=== PATIENT | female | born 1975 | race Caucasian/White ===

== ENCOUNTER 2021-09-18 17:31 | Emergency (ER) | payer OTHER ==
[~2021-09-18] VITALS: Ht 160 cm; Wt 99.8 kg
[2021-09-18] MEDS ORDERED: ALLEGRA ALLERG180 MG PO (17:44)
--- NOTE | 2021-09-20 11:26 | EKG ---
[facility] [address] [facility] [place] [address] Signed Normal sinus rhythm with sinus arrhythmia Cannot rule out Anterior infarct , age undetermined Abnormal ECG No previous ECGs available Confirmed by SAJI ROGERS MD ([id number]) on 09/20/2021 11:26:14 AM Electronically Signed By: SAJI ROGERS MD 09/20/21 1126 PATIENT NAME: CHRISTA JARRELL Electrocardiogram DATE OF : 73 PHYSICIAN: SAJI ROGERS MD REPORT #: [id number] REPORT IS CONFIDENTIAL AND NOT TO BE RELEASED WITHOUT AUTHORIZATION
== END 2021-09-19 00:53 | disposition home or self-care (01) ==
LOC: ED 17:31
DX: U07.1 COVID-19 (principal); R55 Syncope and collapse; E87.6 Hypokalemia; J45.909 Unspecified asthma, uncomplicated; Z88.6 Allergy status to analgesic agent; Z79.899 Other long term (current) drug therapy; Z23 Encounter for immunization
CPT/HCPCS: 71045; 80053; 81001; 83735; 84484; 84703; 85025; 93005; 93010; 96374; 96375; 99284-25; C9803; J2405; J3480; J7121; M0247; U0003

== ENCOUNTER 2022-06-18 06:05 | Day surgery (SDC) | payer OTHER ==
[~2022-06-18] VITALS: Ht 160 cm; Wt 102.3 kg
--- NOTE | ~2022-06-18 | OR ---
[facility] [address] [facility] [place], [place] [address] Draft DATE OF OPERATION: 06/18/2022 SURGEON: Pricilla Centeno DO PROCEDURE: Excision of left vaginal cyst. PREOPERATIVE DIAGNOSIS: Laura duct cyst. POSTOPERATIVE DIAGNOSIS: Laura duct cyst, apical prolapse grade 2 rectocele. FASHION MODEL: Anne-Marie Carpio. BLOOD LOSS: 10 mL. ANESTHESIA: Monitored anesthesia care. COMPLICATIONS: None. FINDING: Significant apical prolapse with grade 2 rectocele, even after reduction of apical prolapse 3 cm simple vaginal cyst directly adjacent to cervix on the left side. INDICATIONS: The patient is a 46-year-old female with history of vaginal cyst. She reports it has been increasing in size and has become bothersome to the point that now with menses she is feeling a sense of vaginal pressure, strongly desires definitive surgical treatment. Risks, benefits, and alternatives were discussed including concern for bleeding, insufficient removal of the complete cyst wall, damage to surrounding structures. The patient's questions were answered to the best of my ability and to her apparent satisfaction. She elected to proceed. PROCEDURE IN DETAIL: The patient was taken back to the operating room where she was placed in dorsal PATIENT NAME: CHRISTA JARRELL OPERATIVE REPORT DATE OF : 73 REPORT #: [id number] PHYSICIAN: PRICILLA CENTENO DO PCP: RUTH LYONS MD REPORT IS CONFIDENTIAL AND NOT TO BE RELEASED WITHOUT AUTHORIZATION [facility] [address] [facility] [place], [place] [address] Draft lithotomy position under monitored anesthesia care. She was prepped and draped in normal sterile fashion. Bladder was drained. Weighted speculum was placed in the vagina, which revealed significant prolapse, not previously visualized on exam with the patient awake, lateral wall of the cyst was grasped with Allis clamps. Local anesthetic 1% lidocaine with epinephrine injected 1 mL. Vaginal epithelium was incised with Metzenbaum scissors and this cyst bluntly and sharply dissected after 75% of the cyst had been undermined. The cyst incidentally ruptured spilling clear contents which were suctioned. Cyst wall was grasped with Allis clamps and dissection of the wall was continued, fraying the cyst wall, which was not submitted to pathology. Mild bleeding was noted and easily cauterized with Bovie cautery. Archie powder was applied. Deep suture of 4-0 Vicryl was placed reapproximating the tissue and vagina was closed with 4-0 Vicryl in a running locked fashion with excellent hemostasis resulting. Vagina was reinspected. Excellent hemostasis was again noted and she was taken to recovery in stable and satisfactory condition. Sponge and instrument counts were all correct. DO CONNIE Claire/JEREMY /[id number] Copies: ~ PATIENT NAME: CHRISTA JARRELL OPERATIVE REPORT DATE OF : 73 REPORT #: [id number] PHYSICIAN: PRICILLA CENTENO DO PCP: RUTH LYONS MD REPORT IS CONFIDENTIAL AND NOT TO BE RELEASED WITHOUT AUTHORIZATION
[~2022-06-18 06:05] MED LIST: ALLEGRA ALLERG180 MG PO
[2022-06-18] MEDS ORDERED: FISH OIL DR 1,1 EAC1 PO (06:23)
[2022-06-18] MEDS ORDERED: BIOTIN10000 MC1 PO (06:24)
[2022-06-18] MEDS ORDERED: WOMEN MULTIVIT1 EAC1 PO (06:25)
[2022-06-18] MEDS ORDERED: ELDERBERRY IMM1 EACH PO (06:25)
[2022-06-18] MEDS ORDERED: VITAMIN D325 MC2 PO (06:25)
[2022-06-18] MEDS ORDERED: CALCIUM500 MG PO (06:25)
[2022-06-18] MEDS ORDERED: VITAMIN C 500500 M1 PO (06:26)
--- NOTE | 2022-06-18 07:56 | NUR ---
VISTED WITH PT PRIOR TO PROCEDURE. WAS WITH PT. PT EXPRESSED SOME NERVOUOSNESS ABOUT PROCEDURE. PT WAS TALKATIVE AND VISIT WAS LONG. PRAYED WITH PT AND .
--- NOTE | 2022-06-18 11:25 | NUR ---
06/18/22 1125 Ambreen Merlos 1119-PATIENT ARRIVED TO PACU ON 6L MASK NONAROUSABLE RR EVEN. SR. IVF INFUSING. NO DRAINAGE TO [facility]. 1124-PATIENT OPENING EYES REMAINS VERY DROWSY. 6L MASK RRE PATY 100% PER DR. PETTY LET PATIENT KNOW IF HAVING ANY STOOL OR VOIDING ISSUES NEEDS TO CALL .
--- NOTE | 2022-06-18 12:05 | NUR ---
LE 1145 PATIENT BACK TO ROOM 12 FROM PACU. REPORT RECIEVED FROM [facility]. PATIENT IS DROWSY BUT DENIES ANY PAIN OR BEING NAUSEATED. BREATHING EQUAL AND UNLABORED. OXYGEN SATURATIONS ABOVE 95% ON ROOM AIR. PATIENT SURGICAL SITE IS CLEAN, DRY AND INTACT. IVF INFUSING. SCD'D ON. CALL LIGHT WITHIN REACH NO FUTHER NEEDS. NO QUESTIONS AT THIS TIME.
--- NOTE | 2022-06-18 13:01 | NUR ---
LE 1210 PATIENT UP TO USE RESTROOM. PATIENT GETTING DRESSED. CALLED. LE 1220 PATIENT READY TO DISCHARGE. PATIENT DISCHARGE INSTRUCTIONS GIVEN AND UNDERSTOOD. NO QUESTIONS AT THIS TIME. IV D/C'D WNL. PATIENT WAS WHEELED OUT OF FACILITY TO PRIVATE AUTO WITH .
--- NOTE | 2022-06-19 14:11 | PATH ---
[facility] [address] [place], [place] [address] Signed SPECIMEN(S): A VAGINAL CYST WALL SPECIMEN SOURCE: A. VAGINAL CYST WALL CLINICAL HISTORY: Laura's duct cyst, left (vaginal cyst wall). FINAL PATHOLOGIC DIAGNOSIS: Vaginal cyst wall: - [place] soft tissue with cystic features, negative for atypical features or evidence of malignancy. JVR:sm:C2NR MICROSCOPIC EXAMINATION: Histologic sections of all submitted blocks are examined by light microscopy. These findings, together with the gross examination, support the pathologic diagnosis. GROSS DESCRIPTION: The specimen, labeled "PM, A," and designated on the requisition "cyst, vaginal wall," is received in formalin and consists of a fragmented portion of pink-cunningham, membranous tissue (2.0 x 1.4 x 0.6 cm). The specimen is serially sectioned and submitted entirely in cassette (A1). AC (under the direct supervision of a pathologist) The Gross Description was prepared using a voice recognition system. The report was reviewed for accuracy; however, sound-alike word errors, addition and/or deletions may occur. If there is any question about this report, please contact Client Services. PERFORMING LABORATORY: The technical component was performed by [facility], [address] [place] [id number] (CLIA# [id number]). Professional interpretation was performed by [facility], [address] [place] [id number] (CLIA#: [id number]). Diagnostician: Ryan Alberts MD Pathologist Electronically Signed 06/19/2022 PATIENT NAME: CHRISTA JARRELL PATHOLOGY DATE OF : 73 REPORT #: [id number] PHYSICIAN: [facility] PCP: RUTH LYONS MD REPORT IS CONFIDENTIAL AND NOT TO BE RELEASED WITHOUT AUTHORIZATION [address] [address] Signed Copies: ~ PATIENT NAME: CHRISTA JARRELL PATHOLOGY DATE OF : 73 REPORT #: [id number] PHYSICIAN: [facility] PCP: RUTH LYONS MD REPORT IS CONFIDENTIAL AND NOT TO BE RELEASED WITHOUT AUTHORIZATION
== END 2022-06-18 12:20 | disposition home or self-care (01) ==
LOC: DS 06:05
PROVIDERS: ATTEND Obstetrics & Gynecology
PROC: 0UBG0ZZ Excision of Vagina, Open Approach (ICD-10-PCS; principal; 2022-06-18 09:00)
DX: Q52.4 Other congenital malformations of vagina (principal); N81.4 Uterovaginal prolapse, unspecified; Z91.040 Latex allergy status; Z20.822 Contact with and (suspected) exposure to COVID-19
CPT/HCPCS: 36415; 84703; 85027; 87502; C9803; J1885; J2250; J2704; J7121; U0003